=== PATIENT | male | born 1980 | race Caucasian/White ===

== ENCOUNTER 2019-10-18 16:37 | Emergency (ER) | payer SELFPAY ==
[2019-10-18] MEDS ORDERED: methylPREDNISolone Sodium Succinate 125 MG/2 ML SDV IM ONE (16:58)
--- NOTE | 2019-10-18 17:04 | EDM.PDOC ---
ED HPI GENERAL MEDICAL PROBLEM - General Chief Complaint: Bite:Animal, Insect Stated Complaint: STUNG BY HORNETS Time Seen by Provider: 10/18/19 16:55 Source of Information: Reports: Patient History Limitations: Reports: No Limitations - History of Present Illness INITIAL COMMENTS - FREE TEXT/NARRATIVE: states he got bit by Hornets ( bees ) about one hour ago on both shoulders and trunk Has progressive rash on the trunk and neck has been pruritic , no pain , no sob , no cough , no swelling of the tongue Onset: Today Onset Date: 10/18/19 Onset Time: 16:00 Duration: Getting Worse Location: Reports: Face, Neck, Chest Quality: Reports: Burning Severity: Moderate Improves with: Reports: Cold Therapy Worsens with: Reports: Heat Therapy Associated Symptoms: Reports: Rash. Denies: Fever/Chills, Headaches, Loss of Appetite, Malaise Treatments MEAL MILLER: Reports: Other (see below) (benadryl) - Related Data Allergies Allergy/AdvReac Type Severity Reaction Status Date / Time No Known Allergies Allergy Verified 10/18/19 16:53 Home Meds: Home Meds predniSONE [Prednisone] 20 mg PO DAILY #20 tablet 10/18/19 [Rx] Past Medical History Respiratory History: Reports: Other (See Below) Other Respiratory History: chronic smoker 25 years 1 pacl/day. Social & Family History - Family History Family Medical History: Noncontributory ED ROS GENERAL - Review of Systems Review Of Systems: See Below Constitutional: Reports: No Symptoms HEENT: Reports: No Symptoms. Denies: Nose Pain, Rhinitis, Sinus Problem, Throat Pain, Throat Swelling Respiratory: Reports: No Symptoms Cardiovascular: Reports: No Symptoms Endocrine: Reports: No Symptoms GI/Abdominal: Reports: No Symptoms Musculoskeletal: Reports: No Symptoms Skin: Reports: No Symptoms Neurological: Reports: No Symptoms Psychiatric: Reports: No Symptoms Hematologic/Lymphatic: Reports: No Symptoms Immunologic: Reports: No Symptoms ED EXAM, ANIMAL BITE - Physical Exam Exam: See Below Exam Limited By: Uncooperative General Appearance: Alert, WD/WN, No Apparent Distress Eye Exam: Bilateral Eye: EOMI Ears: Normal External Exam Nose: Normal Inspection Throat/Mouth: Normal Inspection, Normal Oropharynx Head: Atraumatic, Normocephalic Neck: Normal Inspection, Supple Respiratory/Chest: No Respiratory Distress, Lungs Clear Cardiovascular: Normal Peripheral Pulses, Regular Rate, Rhythm Back Exam: Full Range of Motion Extremities: Normal Inspection, Normal Range of Motion Neurological: Alert, Oriented, CN II-XII Intact Skin Exam: Rash (allergic patch extending from the shoulder down his whole back and the trunk, anteriro chest wall ) Course - Vital Signs Last Recorded V/S: Last Vital Signs Temp 37.1 C 10/18/19 16:50 Pulse 100 10/18/19 16:50 Resp 17 10/18/19 16:50 BP 131/95 H 10/18/19 16:50 Pulse Ox 100 10/18/19 16:50 - Orders/Labs/Meds Meds: Medications Discontinued Medications Generic Name Dose Route Start Last Admin Trade Name Freq PRN Reason Stop Dose Admin Methylprednisolone Sodium Succinate 125 mg 10/18/19 16:58 10/18/19 17:01 Solu-Medrol IM 10/18/19 16:59 125 mg ONETIME ONE Administration - Re-Assessments/Exams Free Text/Narrative Re-Assessment/Exam: 10/18/19 17:06 pt given IM soulmedrol , will follow up with tapered dose of prednisone Departure - Departure Time of Disposition: 17:15 Disposition: Home, Self-Care 01 Clinical Impression: Bee sting reaction, Bee sting allergy - Discharge Information *PRESCRIPTION DRUG MONITORING PROGRAM REVIEWED*: Not Applicable *COPY OF PRESCRIPTION DRUG MONITORING REPORT IN PATIENT JASON: Not Applicable Prescriptions: predniSONE [Prednisone] 20 mg PO DAILY #20 tablet Instructions: Bee, Wasp, or Hornet Sting, Adult Referrals: PCP,None [Primary Care Provider] - Forms: ED Department Discharge Additional Instructions: 1) Cold compress to the affected areas 2) Benadryl as needed Sepsis Event Note (ED) - Evaluation Sepsis Screening Result: No Definite Risk - Focused Exam Vital Signs: Vital Signs Temp Pulse Resp BP Pulse Ox 10/18/19 16:50 37.1 C 100 17 131/95 H 100
== END 2019-10-18 17:22 | disposition home or self-care (01) ==
LOC: FB.ED 16:37
DX: T63.441A Toxic effect of venom of bees, accidental (unintentional), initial encounter (principal)
CPT/HCPCS: 96372; 99282; J2930